=== PATIENT | male | born 1935 | race Asian ===

== ENCOUNTER 2017-08-02 10:43 | Emergency (ER) | payer OTHER ==
[2017-08-02 10:54] VITALS: BP 128/74; PULSE 88; TEMP 98.7; BMI 26.6
--- NOTE | 2017-08-02 11:17 | PDOC ---
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 Kern. pt here for wound care, and dressing change. was concerned because developed a blister under the area on left flank. no f/c draining clear fluid. no c/o pain. Past History - Past Medical History Allergies/Adverse Reactions: Allergies Allergy/AdvReac Type Severity Reaction Status Date / Time No Known Drug Allergies Allergy Verified 08/02/17 10:56 Home Medications: Ambulatory Orders Levothyroxine [Synthroid -] 50 mcg PO DAILY 12/28/13 Losartan Potassium 50 mg PO DAILY 12/28/13 Metoprolol Succinate [Toprol XL -] 25 mg PO DAILY 12/28/13 Simvastatin [Zocor -] 40 mg PO HS 12/28/13 Carbidopa/Levodopa [Carbidopa-Levodopa 10-100 Tab] 1 each PO TID 08/02/17 Ropinirole HCl [Requip -] 0.5 mg PO HS 08/02/17 Cancer: Yes (PROSTATE) Cardiac Disorders: Yes (CARDIAC STENT 07/2008) COPD: No DVT: No HTN: Yes Hypercholesterolemia: Yes Thyroid Disease: Yes (HYPO) - Surgical History Cardiac Surgery: Yes (CARDIAC CATH) - Suicide/Smoking/Psychosocial Hx Smoking History: Former smoker Have you smoked in the past 12 months: No If you are a former smoker, when did you quit?: 20YRS AGO Information on smoking cessation initiated: No Hx Alcohol Use: No Drug/Substance Use Hx: No Substance Use Type: None Review of Systems - Review of Systems Constitutional: No: Chills, Diaphoresis, Fever Musculoskeletal: No: Back Pain Integumentary: Yes: Lesions, Other All Other Systems: Reviewed and Negative *Physical Exam - Vital Signs Last Vital Signs Temp Pulse Resp BP Pulse Ox 98.7 F 88 16 128/74 100 08/02/17 10:45 08/02/17 10:45 08/02/17 10:45 08/02/17 10:45 08/02/17 10:45 - Physical Exam General Appearance: Yes: Appropriately Dressed HEENT: positive: Normal ENT Inspection Respiratory/Chest: positive: Lungs Clear, Normal Breath Sounds Cardiovascular: positive: Regular Rhythm, Regular Rate, S1, S2 Gastrointestinal/Abdominal: positive: Flat, Soft, Other (left flank with large bullae measuriong 2 x 2 in. central lesion / mole). negative: Tender Integumentary: positive: Normal Color, Dry, Warm, Other (left flank lesion/ mole with surrounding bullae, erythematous base. clear fluid. no surrounding erhtyema or warmth. right neck two small punctate lesions with small red base surrounding mole. ) Neurologic: positive: Fully Oriented, Alert, Normal Mood/Affect Medical Decision Making - Medical Decision Making 08/02/17 11:18 likley burn secondary to cry therapy to lesion. recommend local wound care with bacitracin, nonadherant dressing. given referral for account specialist to followup with. d/c pt pcp, will see pt in office tomorrow *DC/Admit/Observation/Transfer Diagnosis at time of Disposition: Blister, Burn - Discharge Dispostion Disposition: HOME Condition at time of disposition: Improved - Referrals Referrals: Kina Whyte [Staff Physician] - - Patient Instructions Printed Discharge Instructions: How to Take Care of a Burn Additional Instructions: you should apply bacitracin to the blister on right side twice daily. keep covered, return for redness, fever worsening pain or any signs of infection. you should follow up with your account specialist. if you do not have one you should schedule appointment with DR whyte. all to schedule. you should also followup with your DR Kern tomorrow. - Post Discharge Activity
== END 2017-08-02 11:21 | disposition home or self-care (01) ==
LOC: FER 10:43
DX: S30.821A Blister (nonthermal) of abdominal wall, initial encounter (principal); I10 Essential (primary) hypertension; E03.9 Hypothyroidism, unspecified; E78.5 Hyperlipidemia, unspecified; Z85.46 Personal history of malignant neoplasm of prostate; Z95.5 Presence of coronary angioplasty implant and graft
CPT/HCPCS: 99282-25

== ENCOUNTER 2018-09-21 17:00 | Emergency (ER) | payer OTHER ==
[2018-09-21 17:05] VITALS: TEMP 98.3; BMI 28.6
[2018-09-21] MEDS ORDERED: LOSARTAN POTASSIUM 50 MG TABLET (FP) PO ONE (17:09)
--- NOTE | 2018-09-21 17:15 | PDOC ---
History of Present Illness - General Chief Complaint: RX Refill Stated Complaint: HTN, UNABLE TO DREDGE DECKHAND LOSARTAN Time Seen by Provider: 09/21/18 17:02 History Source: Patient Exam Limitations: No Limitations - History of Present Illness Initial Comments: 09/21/18 17:10 83 y/o male accompanied by granddaughter presents for medication. Patient had a fall last week and discharged from [facility] yesterday. Had a normal stress test and Echo, chest pain was worked up. No fever or chills. Outside all day. Hx of Parkinson's. No chest pain now, had a little earlier today. Denies radiation to back, arm or neck. No SOB. Unable to fill medication today since pharmacy is closed. Past History - Past Medical History Allergies/Adverse Reactions: Allergies Allergy/AdvReac Type Severity Reaction Status Date / Time No Known Drug Allergies Allergy Verified 09/21/18 17:01 Home Medications: Ambulatory Orders Losartan Potassium 50 mg PO DAILY 12/28/13 Carbidopa/Levodopa [Carbidopa-Levodopa 10-100 Tab] 1 each PO TID 08/02/17 Cancer: Yes (PROSTATE) Cardiac Disorders: Yes (CARDIAC STENT 07/2008) COPD: No DVT: No HTN: Yes Hypercholesterolemia: Yes Thyroid Disease: Yes (HYPO) - Surgical History Cardiac Surgery: Yes (CARDIAC CATH) - Suicide/Smoking/Psychosocial Hx Smoking History: Former smoker Have you smoked in the past 12 months: No If you are a former smoker, when did you quit?: 20YRS AGO Information on smoking cessation initiated: No Hx Alcohol Use: No Drug/Substance Use Hx: No Substance Use Type: None Review of Systems - Review of Systems Able to Perform ROS?: Yes Is the patient limited Malaysian proficient: No Constitutional: No: Chills, Fever Respiratory: No: Cough, Shortness of Breath Cardiac (ROS): No: Chest Pain, Edema : No: Dysuria Musculoskeletal: No: Back Pain Integumentary: No: Bruising Neurological: No: Dizziness All Other Systems: Reviewed and Negative *Physical Exam - Vital Signs Last Vital Signs Temp Pulse Resp BP Pulse Ox 98.3 F 89 18 153/106 H 98 09/21/18 17:01 09/21/18 17:01 09/21/18 17:01 09/21/18 17:01 09/21/18 17:01 - Physical Exam General Appearance: Yes: Nourished, Appropriately Dressed. No: Apparent Distress HEENT: positive: EOMI, MALIK, Normal ENT Inspection, Normal Voice, Symmetrical, Pharynx Normal Neck: positive: Trachea midline, Normal Thyroid, Supple. negative: Tender, Rigid Respiratory/Chest: positive: Lungs Clear, Normal Breath Sounds. negative: Chest Tender, Respiratory Distress Cardiovascular: positive: Regular Rhythm, Regular Rate, S1, S2. negative: Edema , JVD, Murmur Vascular Pulses: Femoral (R): 4+, Femoral (L): 4+, Carotid (R): 4+, Carotid (L) : 4+, Dorsalis-Pedis (R): 4+, Doralis-Pedis (L): 4+ Gastrointestinal/Abdominal: positive: Normal Bowel Sounds, Flat, Soft. negative : Tender, Organomegaly, Pulsatile Mass Lymphatic: negative: Adenopathy, Tenderness, Other Musculoskeletal: positive: Normal Inspection. negative: CVA Tenderness Extremity: positive: Normal Capillary Refill, Normal Inspection, Normal Range of Motion Integumentary: positive: Normal Color, Dry, Warm Neurologic: positive: tool dresser II-XII NML intact, Fully Oriented, Alert, Normal Mood/ Affect, Normal Response, Motor Strength 5/5 ED Treatment Course - ADDITIONAL ORDERS Additional order review: 09/21/18 17:14 Patient present with HTN, feeling better now. Recent stay at [facility] with normal stress and echo as per granddaughter Patient does not wish to be worked up for chest pain, risks and benefits explained to pt *DC/Admit/Observation/Transfer Diagnosis at time of Disposition: Hypertension Qualifiers: Hypertension type: unspecified Qualified Code(s): I10 - Essential (primary) hypertension - Discharge Dispostion Disposition: HOME Condition at time of disposition: Improved Decision to Admit order: No - Referrals - Patient Instructions Printed Discharge Instructions: Essential Hypertension Additional Instructions: Fluids, rest, Tylenol Continue current medications If worsen return to ER - Post Discharge Activity
[2018-09-21 17:27] VITALS: BP 142/101; PULSE 80
== END 2018-09-21 17:27 | disposition home or self-care (01) ==
LOC: FER 17:00
DX: I10 Essential (primary) hypertension (principal); Z87.891 Personal history of nicotine dependence; Z95.0 Presence of cardiac pacemaker; E78.00 Pure hypercholesterolemia, unspecified; Z85.46 Personal history of malignant neoplasm of prostate
CPT/HCPCS: 99281-25

== ENCOUNTER 2018-10-01 21:15 | Emergency (ER) | payer OTHER ==
[2018-10-01 21:40] VITALS: TEMP 98.9; BMI 27.3
[2018-10-01 22:12] LABS: EOS % 10.1 % (0-4.5); HEMATOCRIT 42.7 % (35.4-49); LYMPH % 23.7 % (8-40); MCH 30.4 pg (25.7-33.7); MCHC 32.8 g/dl (32.0-35.9); MEAN CELL VOLUME 92.5 fl (80-96); MEAN PLT VOLUME 7.9 fl (7.5-11.1); MONO % 5.2 % (3.8-10.2); PLATELET COUNT 242 K/MM3 (134-434); RBC 4.61 M/mm3 (4.00-5.60)
[2018-10-01 22:29] LABS: ALBUMIN 3.6 g/dl (3.4-5.0); BILIRUBIN,TOTAL 0.5 mg/dl (0.2-1); CALCIUM 8.8 mg/dl (8.5-10); CREATININE 1.1 mg/dl (0.55-1.3); POTASSIUM 4.5 mmol/L (3.5-5.1); TOT PROT 6.3 g/dl (6.4-8.2)
[2018-10-01 23:12] VITALS: BP 110/77; PULSE 80
--- NOTE | 2018-10-02 03:05 | PDOC ---
Documentation entered by Shea Mann SCRIBE, acting as scribe for Jonny Tabares MD. Jonny Tabares MD: This documentation has been prepared by the Mackenzie link Brenda, SCRIBE, under my direction and personally reviewed by me in its entirety. I confirm that the documentation accurately reflects all work, treatment, procedures, and medical decision making performed by me. History of Present Illness - General Chief Complaint: Blood Pressure Problem Stated Complaint: LOW BLOOD PRESSURE Time Seen by Provider: 10/01/18 21:22 History Source: Family Exam Limitations: No Limitations - History of Present Illness Initial Comments: 10/01/18 22:19 The patient is an 83 year old male, with a significant PMH of HTN, hypothyroidism, HLD , prostate cancer and parkinsons who presents to the emergency department with dizziness and chest pain. As per granddaughter, on the bedside, the patient began to feel dizzy around 8:15pm, at which time he sat down and began to feel heaviness in his chest, where she then measured his BP and found him to be 98/64, prompting their arrival to the ED. The granddaughter reports that on Tuesday of last week (09/26/18), the patient had a fall due to his dizziness and chest pain, while at the gym, where he hit head, was taken into [facility] ED, and was then admitted and prescribed Losartan and metoprolol. The patient denies shortness of breath, headache.. Denies fever, chills, nausea , vomiting, diarrhea and constipation. Denies any urinary symptoms. Allergies: NKA Past surgical history: Cardiac Stent 07/2008, Social history: Former smoker PCP: Dr. Kern Past History - Past Medical History Allergies/Adverse Reactions: Allergies Allergy/AdvReac Type Severity Reaction Status Date / Time No Known Drug Allergies Allergy Verified 10/01/18 21:34 Home Medications: Ambulatory Orders Losartan Potassium 50 mg PO DAILY 12/28/13 Carbidopa/Levodopa [Carbidopa-Levodopa 10-100 Tab] 1 each PO TID 08/02/17 Aspirin Coated [Ecotrin -] 81 mg PO DAILY 10/01/18 Ergocalciferol (Vitamin D2) [Vitamin D2] 50,000 unit PO MONTHLY 10/01/18 Levothyroxine [Synthroid -] 50 mcg PO DAILY 10/01/18 Metoprolol Succinate [Toprol Xl] 25 mg PO DAILY 10/01/18 Cancer: Yes (PROSTATE) Cardiac Disorders: Yes (CARDIAC STENT 07/2008) COPD: No DVT: No HTN: Yes Hypercholesterolemia: Yes Thyroid Disease: Yes (HYPO) Other medical history: PARKINSON'S - Surgical History Cardiac Surgery: Yes (CARDIAC CATH) - Suicide/Smoking/Psychosocial Hx Smoking History: Never smoked Have you smoked in the past 12 months: No If you are a former smoker, when did you quit?: 20YRS AGO Hx Alcohol Use: No Drug/Substance Use Hx: No Substance Use Type: None Review of Systems - Review of Systems Able to Perform ROS?: No Is the patient limited Hebrew proficient: Yes *Physical Exam - Vital Signs Last Vital Signs Temp Pulse Resp BP Pulse Ox 98.9 F 86 16 118/78 97 10/01/18 21:16 10/01/18 21:16 10/01/18 21:16 10/01/18 21:16 10/01/18 21:16 - Physical Exam Comments: 10/01/18 22:19 GENERAL: +parkinsonian tremor. Awake, alert, and fully oriented, in no acute distress HEAD: No signs of trauma EYES: +racoon eye. PERRLA, EOMI, sclera anicteric, conjunctiva clear ENT: Auricles normal inspection, hearing grossly normal, nares patent, oropharynx clear without exudates. Moist mucosa NECK: Normal ROM, supple, no lymphadenopathy, JVD, or masses LUNGS: Breath sounds equal, clear to auscultation bilaterally. No wheezes, and no crackles HEART: Regular rate and rhythm, normal S1 and S2, no murmurs, rubs or gallops ABDOMEN: Soft, nontender, normoactive bowel sounds. No guarding, no rebound. No masses EXTREMITIES: Normal range of motion, no edema. No clubbing or cyanosis. No cords, erythema, or tenderness NEUROLOGICAL: Cranial nerves II through XII grossly intact. Normal speech, normal gait SKIN: Warm, Dry, normal turgor, no rashes or lesions noted. ED Treatment Course - LABORATORY CBC & Chemistry Diagram: 10/01/18 21:50 10/01/18 21:50 - ADDITIONAL ORDERS Additional order review: 10/01/18 21:50 RBC 4.61 MCV 92.5 MCHC 32.8 RDW 15.0 MPV 7.9 Neutrophils % 60.0 Lymphocytes % 23.7 Monocytes % 5.2 Eosinophils % 10.1 H Basophils % 1.0 - RADIOLOGY Radiology Studies Ordered: Category Date Time Status CHEST PA & LAT [RAD] Stat Radiology 10/01/18 21:31 Taken Medical Decision Making - Medical Decision Making 10/02/18 03:06 medical records reviewed-- during recent admission to [facility], had -stress, - head CT. 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, [place] echo Labs, EKG, CXR reviewed no acute pathology BP stable in ED COnstellation of symptoms due most likely to anti-htn, which caused his BP to go too low Hold anti-htn fu with pcp *DC/Admit/Observation/Transfer Diagnosis at time of Disposition: Hypotension Qualifiers: Hypotension type: hypotension due to drug Qualified Code(s): I95.2 - Hypotension due to drugs - Discharge Dispostion Disposition: HOME Condition at time of disposition: Good - Referrals Referrals: Jesus Alberto Kern [Primary Care Provider] - - Patient Instructions Printed Discharge Instructions: How to Monitor Your Blood Pressure at Home - Post Discharge Activity
--- NOTE | 2018-10-29 14:22 | EKG ---
Test Reason : Blood Pressure : / mmHG Vent. Rate : 086 BPM Atrial Rate : 086 BPM P-R Int : 140 ms QRS Dur : 082 ms QT Int : 348 ms P-R-T Axes : 056 -42 024 degrees QTc Int : 416 ms NORMAL SINUS RHYTHM LEFT AXIS DEVIATION ABNORMAL ECG WHEN COMPARED WITH ECG OF 24-SEP-2005 13:55, VENT. RATE HAS INCREASED BY 35 BPM Confirmed by MD Willie, Jeanmarie ([id number]) on 10/29/2018 2:21:56 PM Referred By: Confirmed By:Jeanmarie Tapia MD
== END 2018-10-01 23:31 | disposition home or self-care (01) ==
LOC: SUPCPDRO 21:15 → FER 21:15
DX: I95.2 Hypotension due to drugs (principal); Z87.891 Personal history of nicotine dependence; I10 Essential (primary) hypertension; E78.00 Pure hypercholesterolemia, unspecified; G20 Parkinson's disease
CPT/HCPCS: 36415; 71046-TC-FY; 80053; 84484; 85025; 93005; 99285-25

== ENCOUNTER 2023-06-12 16:42 | Inpatient (IN) | payer OTHER ==
[2023-06-12] MEDS: SODIUM CHLORIDE 500 ML IV STA (17:49)
[2023-06-12 18:22] LABS: HEMATOCRIT 44.3 % (35.4-49); HEMOGLOBIN 14.3 G/dL (11.7-16.9); MCHC 32.2 g/dl (32.0-35.9); MEAN CELL VOLUME 93.3 fl (80-96); MEAN PLT VOLUME 7.5 fl (7.5-11.1); PLATELET COUNT 238.9 10^3/uL (134-434); RBC 4.75 10^6/uL (4.00-5.60); RDW 16.7 % (11.9-15.9); WHITE BLOOD COUNT 4.5 10^3/uL (4.0-10.8)
[2023-06-12 18:32] LABS: ALBUMIN 4.2 g/dl (3.4-5.0); BILIRUBIN,TOTAL 0.5 mg/dl (0.2-1); CALCIUM 9.4 mg/dl (8.5-10.1); CREATININE 1.7 mg/dl (0.6-1.3); POTASSIUM 4.7 mmol/L (3.5-5.1); TOT PROT 7.2 g/dl (6.4-8.2)
[2023-06-12 21:27] LABS: OVALOCYTE 1+; PLATELET ESTIMATE ADEQUATE
[2023-06-12 21:28] LABS: ANISOCYTOSIS 1+
[2023-06-12 22:10] VITALS: BMI 22.1
[2023-06-12] MEDS: SODIUM CHLORIDE 1,000 ML IV SCH (23:15)
[2023-06-13 02:00] VITALS: RESP 18
[2023-06-13] MEDS: LEVOTHYROXINE NA 50 MCG TABLET (FP) PO SCH (06:28)
[2023-06-13] MEDS: PATIENT'S OWN MEDICATION (NON-FORMULARY) (Carbidopa/Levodopa [Carbidopa-Levodopa 10-100 Ta PO SCH (06:28)
[2023-06-13 08:04] LABS: HEMATOCRIT 43.4 % (35.4-49); HEMOGLOBIN 13.5 G/dL (11.7-16.9); MCH 29.2 pg (25.7-33.7); MCHC 31.1 g/dl (32.0-35.9); MEAN CELL VOLUME 93.9 fl (80-96); MEAN PLT VOLUME 7.7 fl (7.5-11.1); PLATELET COUNT 244.6 10^3/uL (134-434); RBC 4.62 10^6/uL (4.00-5.60); RDW 16.1 % (11.9-15.9); WHITE BLOOD COUNT 4.1 10^3/uL (4.0-10.8)
[2023-06-13] MEDS ORDERED: LOSARTAN POTASSIUM 50 MG TABLET PO SCH (10:00)
[2023-06-13] MEDS ORDERED: ENOXAPARIN NA (PORCINE) 40 MG/0.4 ML DISP.SYRIN SQ SCH (10:00)
[2023-06-13 10:12] LABS: POTASSIUM 5.6 mmol/L (3.5-5.1)
[2023-06-13] MEDS: ENOXAPARIN NA (PORCINE) 30 MG/0.3 ML DISP.SYRIN SQ SCH (10:13)
[2023-06-13] MEDS: amLODIPine BESYLATE 5 MG TABLET (FP) PO SCH (10:13)
[2023-06-13] MEDS: metoPROLOL SUCCINATE 25 MG TAB.SR.24H (FP) PO SCH (10:13)
[2023-06-13] MEDS: ASPIRIN COATED 81 MG TABLET.EC PO SCH (10:13)
[2023-06-13 10:18] LABS: CALCIUM 8.6 mg/dL (8.5-10.1)
[2023-06-13 10:19] VITALS: BP 132/76; PULSE 67; TEMP 97.9
[2023-06-13 10:19] LABS: BLOOD UREA NITROGEN 21.3 mg/dL (7-18); MAGNESIUM 2.3 mg/dL (1.8-2.4)
[2023-06-13 10:22] LABS: CREATININE 1.4 mg/dL (0.55-1.3)
[2023-06-13] MEDS: SODIUM ZIRCONIUM CYCLOSILICATE (LOKELMA) 5 GM PACKET PO ONE (11:07)
[2023-06-13] MEDS: CARBIDOPA/LEVODOPA 25/100 TABLET (FP) PO SCH (13:13)
== END 2023-06-13 13:26 | disposition left against medical advice (07) | DRG 57 ==
LOC: FER 16:42 → FM/S 19:56 → OBSVTOIN 06-13 11:39
PROVIDERS: ADMIT Internal Medicine; ATTEND Internal Medicine
DX: G20.A1 Parkinson's disease without dyskinesia, without mention of fluctuations (principal); N17.9 Acute kidney failure, unspecified; I10 Essential (primary) hypertension; E03.9 Hypothyroidism, unspecified; R55 Syncope and collapse
CPT/HCPCS: 36415; 70450-TC; 80048; 80053; 81003; 82550; 83735; 84100; 84436; 84443; 84484; 85025; 85027; 87086; 93005; 97116-GP; 97162-GP; 99285-25; G0378